=== PATIENT | female | born 1955 ===

== ENCOUNTER 2020-11-24 05:50 | Day surgery (SDC) | payer OTHER ==
[~2020-11-24 05:50] MED LIST: CELEBREX100 MG PO; COZAAR100 MG PO; LASIX20 MG PO; NAPROXEN SODIU550 M1 PO; OMEPRAZ PO; SEROQUEL25 MG PO; TRANXENE T-TAB7.5 MG PO; ZYRTEC10 M3 PO
[2020-11-24] MEDS ORDERED: IBU600 MG PO (08:34)
== END 2020-11-24 14:35 | disposition home or self-care (01) ==
LOC: CIR.AMB 05:50
PROVIDERS: ATTEND Obstetrics & Gynecology Gynecology
DX: N84.0 Polyp of corpus uteri (principal); Z20.822 Contact with and (suspected) exposure to COVID-19

== ENCOUNTER 2022-10-04 05:50 | Day surgery (SDC) | payer OTHER ==
[~2022-10-04] VITALS: Ht 154.9 cm; Wt 123.4 kg
[~2022-10-04 05:50] MED LIST changes: +BREO ELLIPTA 21 EACH IH; +CENTRUM ADULT120 MCG PO; +IBU600 MG PO
[2022-10-04] MEDS ORDERED: IBU600 MG PO (09:01)
== END 2022-10-04 11:00 | disposition home or self-care (01) ==
LOC: CIR.AMB 05:50
PROVIDERS: ATTEND Obstetrics & Gynecology Gynecology
DX: R93.89 Abnormal findings on diagnostic imaging of other specified body structures (principal); N93.8 Other specified abnormal uterine and vaginal bleeding; Z88.6 Allergy status to analgesic agent; Z91.013 Allergy to seafood; Z20.822 Contact with and (suspected) exposure to COVID-19; Z86.16 Personal history of COVID-19; I10 Essential (primary) hypertension